=== PATIENT | male | born 1960 | race Caucasian/White ===

== ENCOUNTER 2018-12-14 16:50 | Emergency (ER) | payer OTHER ==
[2018-12-14 16:55] VITALS: RESP 18
[2018-12-14] MEDS ORDERED: DIPH,PERTUS(ACELL)TETVAC-LF 0.5 ML VIAL IM ONE (17:23)
[2018-12-14] MEDS ORDERED: RABIES IMMUNE GLOB 300 UNIT/ML 5 ML VIAL IM ONE (17:23)
[2018-12-14] MEDS ORDERED: RABIES VACCINE (PCEC) 2.5 UNIT KIT IM ONE (17:23)
--- NOTE | 2018-12-14 17:26 | ED ---
General Adult HPI - General Chief complaint: Skin/Abscess/Foreign Body Stated complaint: Dog Bite- Week old bite Time Seen by Provider: 12/14/18 17:05 Source: patient, EMS Mode of arrival: EMS Limitations: physical limitation - History of Present Illness Initial comments: Patient is a 58-year-old male presenting to emergency Department with a chief complaint of a dog bite. Patient reports incident occurred over a week ago when he was bit on the posterior aspect of the right upper leg. Patient reports no problems since the incident but states today he noticed active bleeding from the site of injury. Patient denies any other discharge. Patient reports mild erythema surrounding the bite site. The bites that measured approximately 1 cm x 2 cm. Patient denies any fever, nausea or vomiting. Patient is unaware of his tetanus status. Patient is concern for rabies. - Related Data Home Medications Medication Instructions Recorded Confirmed Atorvastatin [Lipitor] 10 mg PO HS 06/23/15 12/14/18 Gemfibrozil [Lopid] 600 mg PO BID 06/23/15 12/14/18 Loratadine [Claritin] 10 mg PO DAILY 06/23/15 12/14/18 Thiamine [Vitamin B-1] 100 mg PO DAILY 06/23/15 12/14/18 sitaGLIPtin PHOSPHATE [Januvia] 50 mg PO DAILY 05/24/16 12/14/18 Atomoxetine HCl [Strattera] 60 mg PO BID 12/14/18 12/14/18 Ergocalciferol (Vitamin D2) 50,000 unit PO Q7D 12/14/18 12/14/18 [Drisdol] Gabapentin 600 mg PO TID 12/14/18 12/14/18 Ketoconazole 2% Cream [Nizoral 2%] 1 applic TOPICAL DAILY 12/14/18 12/14/18 Vitamin B Complex 1 cap PO DAILY 12/14/18 12/14/18 traZODone HCL 100 mg PO HS 12/14/18 12/14/18 Previous Rx's Medication Instructions Recorded Amoxicillin/Potassium Clav 1 tab PO Q12HR #20 tab 12/14/18 [Augmentin 875-125 Tablet] Allergies Allergy/AdvReac Type Severity Reaction Status Date / Time No Known Allergies Allergy Verified 12/14/18 17:12 Review of Systems ROS Statement: Those systems with pertinent positive or pertinent negative responses have been documented in the HPI. ROS Other: All systems not noted in ROS Statement are negative. Past Medical History Past Medical History: Diabetes Mellitus, Hyperlipidemia, Hypertension, Syncope Additional Past Medical History / Comment(s): Hx of "passing out" with cpr and ventilator use, states due to meds with respiratory failure. Injured rt arm/pinched nerve with chronic pain.Seasonal allergies. Periph. neuropathy. History of Any Multi-Drug Resistant Organisms: None Reported Past Surgical History: No Surgical Hx Reported Past Anesthesia/Blood Transfusion Reactions: No Reported Reaction Past Psychological History: No Psychological Hx Reported Smoking Status: Never smoker - Past Family History Father Family Medical History: Cancer Additional Family Medical History / Comment(s): lung cancer Mother Family Medical History: Congestive Heart Failure (CHF), Diabetes Mellitus Additional Family Medical History / Comment(s): schitzophrenia General Exam Limitations: physical limitation General appearance: alert, in no apparent distress Head exam: Present: atraumatic, normocephalic, normal inspection Eye exam: Present: normal appearance, PERRL, EOMI Pupils: Present: normal accommodation ENT exam: Present: normal exam, mucous membranes moist, normal external ear exam Neck exam: Present: normal inspection, full ROM Respiratory exam: Present: normal lung sounds bilaterally Cardiovascular Exam: Present: regular rate, normal rhythm, normal heart sounds Extremities exam: Present: full ROM (Full range of motion in right knee), tenderness (Tenderness with palpation at the bite site.), normal capillary refill, other (+2 dorsalis pedis and posterior tibialis). Absent: normal inspection (Bite site located on the posterior aspect of the right upper leg. Mild erythema along the periphery of the bite.) Back exam: Present: normal inspection, full ROM Neurological exam: Present: alert, oriented X3 Psychiatric exam: Present: normal affect, normal mood Skin exam: Present: warm, intact, normal color Course Vital Signs 12/14/18 16:52 Temperature 98.9 F Pulse Rate 88 Respiratory 18 Rate Blood Pressure 103/74 O2 Sat by Pulse 96 Oximetry Medical Decision Making - Medical Decision Making Patient is a 50-year-old male presenting to emergency Department with a dog bite. Patient was given tetanus prophylaxis. Patient was given rabies immunoglobulin. Patient was given rabies vaccine today and advised to return for follow-up administration on day 3, 7 and 14. Patient given a single dose of Augmentin and discharged with a 10 day course of Augmentin. Patient advised to follow-up with primary care. Strict return parameters were thoroughly discussed with patient was understanding and agreeable. Case discussed with physician. Disposition Clinical Impression: Dog bite of extremity Disposition: HOME SELF-CARE Condition: Stable Instructions (If sedation given, give patient instructions): Animal Bite (ED) Additional Instructions: Please follow with primary care. Please take prescribed medication as directed. Please return to emergency department if symptoms worsen. Prescriptions: Amoxicillin/Potassium Clav [Augmentin 875-125 Tablet] 1 tab PO Q12HR #20 tab Is patient prescribed a controlled substance at d/c from ED?: No Referrals: Suzie Harrell MD [Primary Care Provider] - 1-2 days Time of Disposition: 18:51
[2018-12-14] MEDS ORDERED: AMOXIC-POT CLAV 875-125MG 1 EACH TAB PO STA (18:48)
[2018-12-14 19:19] VITALS: BP 110/82; PULSE 82; TEMP 98.7
== END 2018-12-14 19:19 | disposition home or self-care (01) ==
LOC: EC 16:50
DX: S71.151A Open bite, right thigh, initial encounter (principal); E11.40 Type 2 diabetes mellitus with diabetic neuropathy, unspecified; E78.5 Hyperlipidemia, unspecified; I10 Essential (primary) hypertension; Z79.84 Long term (current) use of oral hypoglycemic drugs; Z79.899 Other long term (current) drug therapy; Z20.3 Contact with and (suspected) exposure to rabies; Z23 Encounter for immunization; W54.0XXA Bitten by dog, initial encounter
CPT/HCPCS: 90375; 90471; 90472; 90675; 90715; 96372; 99283

== ENCOUNTER 2022-08-09 16:51 | Emergency (ER) | payer MEDICARE, OTHER ==
[2022-08-09 17:48] VITALS: BP 111/81; PULSE 83; RESP 16; TEMP 98
[2022-08-09] MEDS ORDERED: SULFAMETHOX-TMP 800-160MG 1 EACH TAB PO STA (21:19)
[2022-08-09] MEDS ORDERED: CEPHALEXIN 500 MG CAP PO STA (21:19)
[2022-08-09] MEDS ORDERED: NAPROXEN 250 MG TAB PO STA (21:25)
--- NOTE | 2022-08-09 21:30 | ED ---
Extremity Problem HPI - General Chief complaint: Extremity Problem,Nontraumatic Stated complaint: Foot Infection Time Seen by Provider: 08/09/22 20:56 Source: patient, RN notes reviewed, old records reviewed Mode of arrival: ambulatory Limitations: no limitations - History of Present Illness Initial comments: 61-year-old male with 4 days of pain and swelling to the right great toe and foot. Patient is a diabetic. He has had some cracking at the base of the great toe on the right foot. He noticed increased pain and swelling over the past 4 days. No fever. - Related Data Home Medications Medication Instructions Recorded Confirmed Atorvastatin [Lipitor] 10 mg PO HS 06/23/15 12/14/18 Loratadine [Claritin] 10 mg PO DAILY 06/23/15 12/14/18 Thiamine [Vitamin B-1] 100 mg PO DAILY 06/23/15 12/14/18 gemfibroziL [Lopid] 600 mg PO BID 06/23/15 12/14/18 sitaGLIPtin PHOSPHATE [Januvia] 50 mg PO DAILY 05/24/16 12/14/18 Atomoxetine HCl [Strattera] 60 mg PO BID 12/14/18 12/14/18 Ergocalciferol (Vitamin D2) 50,000 unit PO Q7D 12/14/18 12/14/18 [Drisdol] Gabapentin 600 mg PO TID 12/14/18 12/14/18 Ketoconazole 2% Cream [Nizoral 2%] 1 applic TOPICAL DAILY 12/14/18 12/14/18 Vitamin B Complex 1 cap PO DAILY 12/14/18 12/14/18 traZODone HCL 100 mg PO HS 12/14/18 12/14/18 Previous Rx's Medication Instructions Recorded Amoxicillin/Potassium Clav 1 tab PO Q12HR #20 tab 12/14/18 [Augmentin 875-125 Tablet] Cephalexin [Keflex] 500 mg PO QID 10 Days #40 cap 08/09/22 Naproxen [EC-Naprosyn] 500 mg PO BID #14 tab 08/09/22 Sulfamethox-Tmp 800-160Mg [Bactrim 1 tab PO Q12HR #28 tab 08/09/22 DS 800-160 mg] Allergies Allergy/AdvReac Type Severity Reaction Status Date / Time No Known Allergies Allergy Verified 12/14/18 17:12 Review of Systems ROS Statement: Those systems with pertinent positive or pertinent negative responses have been documented in the HPI. ROS Other: All systems not noted in ROS Statement are negative. Past Medical History Past Medical History: Diabetes Mellitus, Hyperlipidemia, Hypertension, Syncope Additional Past Medical History / Comment(s): Hx of "passing out" with cpr and ventilator use, states due to meds with respiratory failure. Injured rt arm/pinched nerve with chronic pain.Seasonal allergies. Periph. neuropathy. History of Any Multi-Drug Resistant Organisms: None Reported Past Surgical History: No Surgical Hx Reported Past Anesthesia/Blood Transfusion Reactions: No Reported Reaction Past Psychological History: No Psychological Hx Reported Past Alcohol Use History: Daily, Heavy Past Drug Use History: Marijuana - Past Family History Father Family Medical History: Cancer Additional Family Medical History / Comment(s): lung cancer Mother Family Medical History: Congestive Heart Failure (CHF), Diabetes Mellitus Additional Family Medical History / Comment(s): schitzophrenia General Exam Limitations: no limitations General appearance: alert, in no apparent distress Head exam: Present: atraumatic, normocephalic Eye exam: Present: normal appearance, PERRL ENT exam: Present: normal exam Neck exam: Present: normal inspection. Absent: tenderness Respiratory exam: Present: normal lung sounds bilaterally. Absent: respiratory distress, wheezes Cardiovascular Exam: Present: regular rate, normal rhythm GI/Abdominal exam: Present: soft. Absent: distended, tenderness Extremities exam: Present: normal inspection, other (Erythema of the right great toe, no pain with range of motion, no induration or drainable abscess) Course Vital Signs 08/09/22 17:45 Temperature 98 F Pulse Rate 83 Respiratory 16 Rate Blood Pressure 111/81 O2 Sat by Pulse 98 Oximetry Medical Decision Making - Medical Decision Making Was pt. sent in by a medical professional or institution (, PA, SUPERVISOR DOPING, urgent care, hospital, or alf...) When possible be specific @ -No Did you speak to anyone other than the patient for history (EMS, parent, family, police, friend...)? What history was obtained from this source @ -No Did you review nursing and triage notes (agree or disagree)? Why? @ -I reviewed and agree with nursing and triage notes Were old charts reviewed (outside hosp., previous admission, EMS record, old EKG, old radiological studies, urgent care reports/EKG's, alf records)? Report findings @ -No old charts were reviewed Differential Diagnosis (chest pain, altered mental status, abdominal pain women, abdominal pain men, vaginal bleeding, weakness, fever, dyspnea, syncope, headache, dizziness, GI bleed, back pain, seizure, CVA, palpatations, mental health, musculoskeletal)? @ -not applicable EKG interpreted by me (3pts min.). @ -As above X-rays interpreted by me (1pt min.). @ -None done CT interpreted by me (1pt min.). @ -None done U/S interpreted by me (1pt. min.). @ -None done What testing was considered but not performed or refused? (CT, X-rays, U/S, labs)? Why? @ -None What meds were considered but not given or refused? Why? @ -None Did you discuss the management of the patient with other professionals (professionals i.e. , PA, SUPERVISOR DOPING, lab, RT, psych nurse, social service coordinator, chief controller center, teacher, casino surveillance officer, case packer and sealer)? Give summary @ -No Was smoking cessation discussed for >3mins.? @ -No Was critical care preformed (if so, how long)? @ -No Were there social determinants of health that impacted care today? How? (Homelessness, low income, unemployed, alcoholism, drug addiction, transportation, low edu. Level, literacy, decrease access to med. care, fdc, rehab)? @ -No Was there de-escalation of care discussed even if they declined (Discuss DNR or withdrawal of care, Hospice)? DNR status @ -No What co-morbidities impacted this encounter? (DM, HTN, Smoking, COPD, CAD, Cancer, CVA, ARF, Chemo, Hep., AIDS, mental health diagnosis, sleep apnea, morbid obesity)? @ -DM, HTH Was patient admitted / discharged? Hospital course, mention meds given and route, prescriptions, significant lab abnormalities, going to OR and other pertinent info. @ -Discharged with oral antibiotics and strict return parameters Undiagnosed new problem with uncertain prognosis? @ -No Drug Therapy requiring intensive monitoring for toxicity (Heparin, Nitro, Insulin, Cardizem)? @ -No Were any procedures done? @ -No Diagnosis/symptom? @ -Cellulitis of the right great toe Acute, or Chronic, or Acute on Chronic? @ -Acute Uncomplicated (without systemic symptoms) or Complicated (systemic symptoms)? @ -Uncomplicated Side effects of treatment? @ -No Exacerbation, Progression, or Severe Exacerbation? @ -No Poses a threat to life or bodily function? How? (Chest pain, [place], [place], pneumonia, PE, COPD, DKA, ARF, appy, cholecystitis, CVA, Diverticulitis, Homicidal, Suicidal, threat to staff... and all critical care pts) @ -No Disposition Clinical Impression: Cellulitis Disposition: HOME SELF-CARE Condition: Good Instructions (If sedation given, give patient instructions): Cellulitis (ED) Prescriptions: Sulfamethox-Tmp 800-160Mg [Bactrim DS 800-160 mg] 1 tab PO Q12HR #28 tab Naproxen [EC-Naprosyn] 500 mg PO BID #14 tab Cephalexin [Keflex] 500 mg PO QID 10 Days #40 cap Is patient prescribed a controlled substance at d/c from ED?: No Referrals: Amrit Castanon DO [Primary Care Provider] - 1-2 days Time of Disposition: 21:26
== END 2022-08-09 21:50 | disposition home or self-care (01) ==
LOC: EC 16:51
DX: L03.031 Cellulitis of right toe (principal); I10 Essential (primary) hypertension; E11.9 Type 2 diabetes mellitus without complications; E78.5 Hyperlipidemia, unspecified; F12.90 Cannabis use, unspecified, uncomplicated; Z79.1 Long term (current) use of non-steroidal anti-inflammatories (NSAID); Z79.84 Long term (current) use of oral hypoglycemic drugs; Z79.899 Other long term (current) drug therapy
CPT/HCPCS: 99283

== ENCOUNTER 2023-08-25 17:26 | Emergency (ER) | payer MEDICARE, OTHER ==
--- NOTE | 2023-08-25 18:00 | ED ---
Skin/Abscess/FB HPI - General Chief complaint: Skin/Abscess/Foreign Body Stated complaint: Rash Time Seen by Provider: 08/25/23 17:41 Source: patient Mode of arrival: ambulatory Limitations: no limitations - History of Present Illness Initial comments: This patient is 62-year-old man who presents for evaluation of 2 small areas that he believes are skin infection. Patient states that he recently had MRSA infection of the foot. He had been treated through [facility]. He notes that over the past couple of days he has had with small swollen area to the right brow and also to the right cheek area that it started to slowly increase in size. He has not had systemic symptoms. No fever or chills. No chest pain, palpitations, dyspnea. MD complaint: abscess/boil Onset/Timin -: days(s) Tetanus Up to Date: yes Location: face Severity: mild Quality: dull Consistency: constant Improves with: none Worsens with: none Context: none Associated symptoms: denies other symptoms Treatments Prior to Arrival: none - Related Data Home Medications Medication Instructions Recorded Confirmed Atorvastatin [Lipitor] 10 mg PO HS 06/23/15 12/14/18 Loratadine [Claritin] 10 mg PO DAILY 06/23/15 12/14/18 Thiamine [Vitamin B-1] 100 mg PO DAILY 06/23/15 12/14/18 gemfibroziL [Lopid] 600 mg PO BID 06/23/15 12/14/18 sitaGLIPtin PHOSPHATE [Januvia] 50 mg PO DAILY 05/24/16 12/14/18 Atomoxetine HCl [Strattera] 60 mg PO BID 12/14/18 12/14/18 Ergocalciferol (Vitamin D2) 50,000 unit PO Q7D 12/14/18 12/14/18 [Drisdol] Gabapentin 600 mg PO TID 12/14/18 12/14/18 Ketoconazole 2% Cream [Nizoral 2%] 1 applic TOPICAL DAILY 12/14/18 12/14/18 Vitamin B Complex 1 cap PO DAILY 12/14/18 12/14/18 traZODone HCL 100 mg PO HS 12/14/18 12/14/18 Previous Rx's Medication Instructions Recorded Amoxicillin/Potassium Clav 1 tab PO Q12HR #20 tab 12/14/18 [Augmentin 875-125 Tablet] Cephalexin [Keflex] 500 mg PO QID 10 Days #40 cap 08/09/22 Naproxen [EC-Naprosyn] 500 mg PO BID #14 tab 08/09/22 Sulfamethox-Tmp 800-160Mg [Bactrim 1 tab PO Q12HR #28 tab 08/09/22 DS 800-160 mg] Sulfamethox-Tmp 800-160Mg [Bactrim 2 each PO Q12HR #28 tab 08/25/23 Ds] Allergies Allergy/AdvReac Type Severity Reaction Status Date / Time No Known Allergies Allergy Verified 12/14/18 17:12 Review of Systems ROS Statement: Those systems with pertinent positive or pertinent negative responses have been documented in the HPI. ROS Other: All systems not noted in ROS Statement are negative. Constitutional: Denies: fever, chills Respiratory: Denies: cough, dyspnea Cardiovascular: Denies: chest pain, palpitations Skin: Reports: as per HPI, lesions Neurological: Denies: headache, weakness, numbness Past Medical History Past Medical History: Diabetes Mellitus, Hyperlipidemia, Hypertension, Syncope Additional Past Medical History / Comment(s): Hx of "passing out" with cpr and ventilator use, states due to meds with respiratory failure. Injured rt arm/pinched nerve with chronic pain.Seasonal allergies. Periph. neuropathy. History of Any Multi-Drug Resistant Organisms: None Reported Past Surgical History: No Surgical Hx Reported Past Anesthesia/Blood Transfusion Reactions: No Reported Reaction Past Psychological History: No Psychological Hx Reported Smoking Status: Never smoker Past Alcohol Use History: None Reported, Daily, Heavy Past Drug Use History: None Reported, Marijuana - Past Family History Father Family Medical History: Cancer Additional Family Medical History / Comment(s): lung cancer Mother Family Medical History: Congestive Heart Failure (CHF), Diabetes Mellitus Additional Family Medical History / Comment(s): schitzophrenia General Exam Limitations: no limitations General appearance: alert, in no apparent distress Neck exam: Present: normal inspection, full ROM Respiratory exam: Present: normal lung sounds bilaterally. Absent: respiratory distress, wheezes, rales, rhonchi, stridor Cardiovascular Exam: Present: regular rate, normal rhythm, normal heart sounds. Absent: systolic murmur, diastolic murmur, rubs, gallop Skin exam: Present: warm, dry, intact, other (The patient does have 2 papular lesions to the right side of the face both less than 1 cm, no evident pustular collection.) Course Vital Signs 08/25/23 17:34 Temperature 97.8 F Pulse Rate 86 Respiratory 18 Rate Blood Pressure 156/76 O2 Sat by Pulse 97 Oximetry Medical Decision Making - Medical Decision Making Given the patient's recent MRSA infection, will provide Bactrim coverage and close follow-up. He was instructed in local care and also the return parameters. Was pt. sent in by a medical professional or institution (, [facility], APPLICATOR SPRAYER, urgent care, hospital, or [place] health [facility] facility...) When possible be specific @ -[No] Did you speak to anyone other than the patient for history (EMS, parent, family, police, friend...)? What history was obtained from this source @ -[No] Did you review nursing and triage notes (agree or disagree)? Why? @ -[I reviewed and agree with nursing and triage notes] Were old charts reviewed (outside hosp., previous admission, EMS record, old EKG, old radiological studies, urgent care reports/EKG's, [place] [facility] records)? Report findings @ -[No old charts were reviewed] Differential Diagnosis (chest pain, altered mental status, abdominal pain women, abdominal pain men, vaginal bleeding, weakness, fever, dyspnea, syncope, headache, dizziness, GI bleed, back pain, seizure, CVA, palpatations, mental health, musculoskeletal)? @ -[Differential diagnosis at this point appears to be cellulitis, folliculitis, early abscess or infected subcutaneous cyst EKG interpreted by me (3pts min.). @ -[As above] X-rays interpreted by me (1pt min.). @ -[None done] CT interpreted by me (1pt min.). @ -[None done] U/S interpreted by me (1pt. min.). @ -[None done] What testing was considered but not performed or refused? (CT, X-rays, U/S, labs)? Why? @ -[None] What meds were considered but not given or refused? Why? @ -[None] Did you discuss the management of the patient with other professionals (professionals i.e. , [facility], APPLICATOR SPRAYER, lab, RT, psych nurse, addiction social worker, steel inspector, teacher, armoured corps officer, egg caser)? Give summary @ -[No] Was smoking cessation discussed for >3mins.? @ -[No] Was critical care preformed (if so, how long)? @ -[No] Were there social determinants of health that impacted care today? How? (Homelessness, low income, unemployed, alcoholism, drug addiction, transportation, low edu. Level, literacy, decrease access to med. care, senior care, rehab)? @ -[No] Was there de-escalation of care discussed even if they declined (Discuss DNR or withdrawal of care, Hospice)? DNR status @ -[No] What co-morbidities impacted this encounter? (DM, HTN, Smoking, COPD, CAD, Cancer, CVA, ARF, Chemo, Hep., AIDS, mental health diagnosis, sleep apnea, morbid obesity)? @ -[None] Was patient admitted / discharged? Hospital course, mention meds given and route, prescriptions, significant lab abnormalities, going to OR and other pertinent info. @ -[Patient is 62-year-old man who does appear to have early infection and at this point stable for outpatient antibiotic treatment. Discussed appropriate further care and follow-up as well as return parameters. Undiagnosed new problem with uncertain prognosis? @ -[No] Drug Therapy requiring intensive monitoring for toxicity (Heparin, Nitro, Insulin, Cardizem)? @ -[No] Were any procedures done? @ -[No] Diagnosis/symptom? @ -[Acute folliculitis Acute, or Chronic, or Acute on Chronic? @ -[Acute on chronic Uncomplicated (without systemic symptoms) or Complicated (systemic symptoms)? @ -[default] Side effects of treatment? @ -[No] Exacerbation, Progression, or Severe Exacerbation? @ -[No] Poses a threat to life or bodily function? How? (Chest pain, [place], [place], pneumonia, PE, COPD, DKA, ARF, appy, cholecystitis, CVA, Diverticulitis, Homicidal, Suicidal, threat to staff... and all critical care pts) @ -[No] Disposition Clinical Impression: Folliculitis Disposition: HOME SELF-CARE Condition: Good Instructions (If sedation given, give patient instructions): Folliculitis (ED) Prescriptions: Sulfamethox-Tmp 800-160Mg [Bactrim Ds] 2 each PO Q12HR #28 tab Is patient prescribed a controlled substance at d/c from ED?: No Referrals: Suzie Harrell MD [Primary Care Provider] - 1-2 days
[2023-08-25 18:07] VITALS: BP 156/76; PULSE 86; RESP 18; TEMP 97.8
[2023-08-25] MEDS: SULFAMETHOX-TMP 800-160MG 1 EACH TAB PO STA ×2 (18:17→18:25)
== END 2023-08-25 18:45 | disposition home or self-care (01) ==
LOC: EC 17:26
DX: L73.9 Follicular disorder, unspecified (principal)
CPT/HCPCS: 99282